=== PATIENT | male | born 1965 | race Caucasian/White ===

== ENCOUNTER 2016-10-07 15:57 | Emergency (ER) | payer OTHER ==
--- NOTE | ~2016-10-07 | CT52 ---
[facility] A Service of [facility] & [facility] / [facility] RADIOLOGY TEXT RESULTS PATIENT: IVONE TELLO LOCATION: SED : 63 UNIT #: [id number] AGE: [address]: Paras Ness MD SEX: M ORDER DR: [id number] [place] [id number] E MR#: [id number] Acc #: [id number] NAME: IVONE TELLO : 1965 SEX: M STUDY DATE/TIME: 10/07/2016 16:10 UNIT: SED ROOM: STUDY DESCRIPTION: CT Cervical Spine Wo Cont Attending Physician: Paras Ness M.D. Ordering Physician: Paras Ness M.D. Primary Care Physician: Makeda Palomo M.D. MEDICAL IMAGING REPORT This report is preliminary unless electronic signature is present. EXAM CT cervical spine, 10/07/2016 HISTORY Pain. Laceration above right eye. Dizziness. Posterior neck pain. TECHNIQUE This CT exam was performed with one or more of the following radiation dose reduction techniques: automatic exposure control, adjustment of mA and/or kV according to patient size, and iterative reconstruction. FINDINGS CT cervical spine performed. Bone soft tissue windows reviewed. Sagittal coronal reconstructions performed. Visualized brain unremarkable. Visualized paranasal sinuses and mastoid air cells clear. Nasopharyngeal, oropharyngeal, pharyngeal mucosal retropharyngeal spaces, larynx, subglottic airway, superior mediastinum, lung apices, thyroid, visualized submandibular and parotid glands unremarkable. No adenopathy. Unopacified vascular structures unremarkable. Vertebral body heights normal. Alignment normal. Moderate generalized narrowing of intervertebral disc spaces. Multiple anterior and posterior osteophyte formations. Facet joint relationships are normal with multilevel [id number] facet degenerative change. Study degraded by CT artifact related to patient's large body habitus. There is no evidence of traumatic fracture or malalignment. C2-C3: Small posterior central disc osteophyte complex. Mild mass effect on thecal sac. No significant spinal canal narrowing. Mild right foraminal narrowing due to uncovertebral and facet degenerative change. No indication of exiting nerve impingement. [facility] A Service of [facility] & [facility] / [facility] RADIOLOGY TEXT RESULTS PATIENT: IVONE TELLO LOCATION: SED : 63 UNIT #: [id number] AGE: [address]: Paras Ness MD SEX: M ORDER DR: C3-C4: Small posterior central disc osteophyte complex. Narrowing anterior thecal space. No definite cord contact and no cord compression. Mild central spinal canal narrowing. Neural foramina show mild narrowing bilaterally due to facet and uncovertebral degenerative change. C4-C5: Posterior disc osteophyte complex. Mild central spinal canal narrowing. No cord compression. Questionable anterior central cord contact. Mild foraminal narrowing due to uncovertebral and facet degenerative change. More pronounced on the left than right. C5-C6: Posterior disc osteophyte complex. Probable anterior cord contact. There is mild central spinal canal narrowing. There may be some associated effacement of the anterior cord contour. The neural foramina are patent without evidence of exiting nerve impingement. C6-C7: Probably minimal posterior concentric disc osteophyte complex. No significant spinal canal narrowing. The neural foramina are patent without evidence of exiting nerve impingement. C7-T1, T1-T2: Unremarkable. IMPRESSION 1. No traumatic fracture or malalignment. 2. Multilevel degenerative change in the spine. Please see [id number] description in body of report above. Most pronounced findings overall probably at the C5-C6 level with posterior central disc osteophyte complex. Mild central spinal canal narrowing, anterior cord contact and some effacement of the anterior cord contour. These findings are favored to be chronic in time course. 3. 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 This is a normal variant. 4. No acute paraspinal soft tissue abnormality is suggested. Dictated by... Thai Ashton M.D. THIS IS AN ELECTRONICALLY VERIFIED REPORT Thai Ashton M.D. at 10/08/2016 2:44 PM SANDRO/cinthia TD: 10/08/2016 03:22 JOB #: [id number] MEDICAL IMAGING REPORT Page 1 of 1
--- NOTE | ~2016-10-07 | CT71 ---
[facility] A Service of [facility] & [facility] RADIOLOGY TEXT RESULTS PATIENT: IVONE TELLO LOCATION: SED : 63 UNIT #: [id number] AGE: [address]: Paras Ness MD SEX: M ORDER DR: [id number] [place] [id number] E MR#: [id number] Acc #: [id number] NAME: IVONE TELLO : 1965 SEX: M STUDY DATE/TIME: 10/07/2016 16:17 UNIT: SED ROOM: STUDY DESCRIPTION: CT Head Wo Contrast Attending Physician: Paras Ness M.D. Ordering Physician: Paras Ness M.D. Primary Care Physician: Makeda Palomo M.D. MEDICAL IMAGING REPORT This report is preliminary unless electronic signature is present. EXAM CT head, 10/07/2016 HISTORY Pain. Laceration above the right eye. Headache all over, posterior neck pain, dizziness, also. TECHNIQUE This CT exam was performed with one or more of the following radiation dose reduction techniques: automatic exposure control, adjustment of mA and/or kV according to patient size, and iterative reconstruction. FINDINGS CT of the head performed skull base through vertex without intravenous contrast. Comparison 07/09/2007. The brainstem is unremarkable. Cerebellum and cerebral hemispheres show normal becerril matter-white matter differentiation. No hemorrhage. No evidence of acute cortical ischemia. Midline structures nondisplaced. Basal ganglia show no acute abnormality. There is a small subcentimeter chronic lacunar infarct inferior right putamen. No acute-appearing basal ganglia abnormality. The ventricles, cisterns and sulci are normal in size and contour. There is no intra or extraaxial mass effect or abnormal intracranial fluid collection. The intraorbital soft tissues are unremarkable. The visualized paranasal sinuses and mastoid air cells show no acute appearing sinus disease. No fracture. Soft tissue laceration and subcutaneous edema/contusion right supraorbital soft tissues. No radiodense foreign body. IMPRESSION 1. No acute abnormality is seen in the brain. If the patient has ongoing neurologic symptoms, consider followup imaging. 2. Soft tissue laceration and subcutaneous edema/contusion right supraorbital soft tissues. No subcutaneous radiodense foreign body. STS. [facility] A Service of [facility] & [facility] RADIOLOGY TEXT RESULTS PATIENT: IVONE TELLO LOCATION: SED : 63 UNIT #: [id number] AGE: [address]: Paras Ness MD SEX: M ORDER DR: 3. No fracture. Dictated by... Thai Ashton M.D. THIS IS AN ELECTRONICALLY VERIFIED REPORT Thai Ashton M.D. at 10/08/2016 2:44 PM SANDRO/cinthia TD: 10/08/2016 02:39 JOB #: [id number] MEDICAL IMAGING REPORT Page 1 of 1
[~2016-10-07 15:57] MED LIST: ALBUTEROL17 GM INH; CIPRO PO; DETROL LA PO; FLEXERIL PO; HYDROCODON-ACE1 EAC5 PO; LISINOPRIL PO; LORCET 10/650 T1 TAB PO; NAPROXEN PO; NORCO 7.5/325 T1 TAB PO; PREDNISONE1 MG PO; PRIMATENE MIST; PYRIDIUM PO; ZESTORETIC PO; ZYLOPRIM PO
== END 2016-10-07 18:01 | disposition home or self-care (01) ==
LOC: SED 15:57
DX: S09.90XA Unspecified injury of head, initial encounter (principal); S01.01XA Laceration without foreign body of scalp, initial encounter; M54.2 Cervicalgia; M54.9 Dorsalgia, unspecified; F41.9 Anxiety disorder, unspecified; I10 Essential (primary) hypertension; E66.9 Obesity, unspecified; Z87.891 Personal history of nicotine dependence; Z79.899 Other long term (current) drug therapy; Z88.0 Allergy status to penicillin; Z91.018 Allergy to other foods; W22.8XXA Striking against or struck by other objects, initial encounter; Y92.009 Unspecified place in unspecified non-institutional (private) residence as the place of occurrence of the external cause
CPT/HCPCS: 12001; 70450; 72125; 99283